=== PATIENT | male | born 1965 | race Caucasian/White ===

== ENCOUNTER 2019-12-27 10:02 | Emergency (ER) | payer OTHER, SELFPAY ==
--- NOTE | 2019-12-27 10:10 | ED.EAR ---
HPI - Ear Problem General Chief complaint: Ear Stated complaint: ear pn Time Seen by Provider: 12/27/19 10:11 Source: patient and RN notes reviewed History of Present Illness HPI Narrative: Patient is a 54-year-old male that presents the urgent care with complaints of left ear pain. Patient states that he had a cold a couple weeks ago and then the left ear started hurting approximately 1 week ago. Patient has not used anything for the pain or anything [id number]. Denies any drainage from the ear. Denies any hearing loss. Denies putting anything in the ear. No other acute complaints. No acute distress noted. Patient read the plan of care. Related Data Home Medications Medication Instructions Recorded Confirmed aspirin 81 mg tablet,delayed 81 mg PO DAILY 09/17/19 release esomeprazole magnesium 20 mg 20 mg PO DAILY 09/17/19 capsule,delayed release rosuvastatin 20 mg tablet 20 mg PO DAILY 09/17/19 Allergies Allergy/AdvReac Type Severity Reaction Status Date / Time No Known Allergies Allergy Verified 10/01/19 15:15 Review of Systems Review of Systems: Narrative: CONSTITUTIONAL: Denies fever, chills, or sweats. EYES: Denies visual changes, redness, or discharge. ENT: Reports of left ear pain CARDIOVASCULAR: Denies chest pain, palpitations, or edema. RESPIRATORY: Denies cough or dyspnea. GASTROINTESTINAL: Denies abdominal pain, nausea, vomiting, or diarrhea. GENITOURINARY: Denies dysuria or hematuria. SKIN: Denies rash or itching. MUSCULOSKELETAL: Denies back pain, joint pain, or myalgia. NEUROLOGIC: Denies headache, numbness, or weakness. All other systems reviewed are negative, except as documented in HPI. [facility] Family History Family History (Updated 06/04/18 @ 16:07 by DOCTOR UNKNOWN) Mother Hypertension Family history of malignant neoplasm of ovary, Onset Age: 74 Sibling Family history of diabetes mellitus in first degree relative Diabetes mellitus Father Family history of heart disease in male family member before age 55 Family history of cardiovascular disease Grandparent Diabetes mellitus Social History Social History Smoking status: Never smoker Alcohol intake: never Comments At the time of my signature, I reviewed and agree with the nursing past medical, surgical, social, and family history. There is no relevant family history pertinent to the patient complaint. Exam Narrative: Exam Narrative: GENERAL: This is a well-nourished, well-developed patient, in no apparent distress. HEAD: normocephalic, atraumatic. EYES: PERRL. Sclera clear/white. Vision is grossly intact. EARS: External ears normal, auditory canals clear and without drainage, moderate fluid noted behind left TM with mild fluid behind right TM without otitis, TMs normal without perforation. Hearing grossly intact. NOSE: External nose normal with no obvious nasal discharge, nares without redness, no rhinorrhea. THROAT: Mucous membranes moist, posterior pharynx clear. NECK: Neck supple CARDIOVASCULAR: Regular rate and rhythm SKIN: warm, intact with no suspicious lesions or rash, good texture and turgor. NEURO: awake, alert, and oriented to person, place and time. There were no obvious focal neurologic abnormalities. EXTREMITIES: No clubbing, cyanosis, or edema. Course Vital Signs Vital signs: Vital Signs Temperature 98.1 F 12/27/19 10:14 Pulse Rate 71 12/27/19 10:14 Respiratory Rate 20 12/27/19 10:14 Blood Pressure 126/74 12/27/19 10:14 Pulse Oximetry 98 12/27/19 10:14 Temperature 98.1 F 12/27/19 10:14 Pulse Rate 71 12/27/19 10:14 Respiratory Rate 20 12/27/19 10:14 Blood Pressure 126/74 12/27/19 10:14 Pulse Oximetry 98 12/27/19 10:14 Reviewed Medical Decision Making MDM Narrative Medical decision making narrative: Advised the patient to use Claritin without a pseudoephedrine in conjunction with Flonase nasal spray prior to bedtime. Use ibuprofen as n
[2019-12-27 10:14] VITALS: BP 126/74; PULSE 71; RESP 20; TEMP 36.7; O2SAT 98
== END 2019-12-27 10:23 | disposition home or self-care (01) ==
PROVIDERS: Emergency Provider Nurse Practitioner Family; PCP Internal Medicine
DX: H92.02 Otalgia, left ear (principal); I10 Essential (primary) hypertension; E78.00 Pure hypercholesterolemia, unspecified
CPT/HCPCS: 99213; G0463

== ENCOUNTER 2020-04-02 15:45 | Outpatient (CLI) | payer OTHER, SELFPAY ==
[2020-04-02 16:40] LABS: Hemoglobin A1C 6.2 % (<5.7)
[2020-04-02 17:29] LABS: Creatinine Urine 258.5 mg/dL
[2020-04-02 17:35] LABS: MALB Creatinine Ratio 2.7 mg/g (0-30); Microalbumin Urine Random 6.9 mg/L (0-16.7)
== END 2020-04-02 15:46 | disposition home or self-care (01) ==
PROVIDERS: PCP Internal Medicine; Visit Provider Internal Medicine
DX: R73.01 Impaired fasting glucose (principal)
CPT/HCPCS: 36415; 82043; 83036

== ENCOUNTER 2020-10-09 08:30 | Outpatient (CLI) | payer OTHER, SELFPAY ==
[2020-10-09 09:43] LABS: Basophils Percent Auto 0.5 % (0.2-1.2); Eosinophils Absolute Auto 0.1 K/mm3 (0-0.3); Eosinophils Percent Auto 1.4 % (0-4.4); Hematocrit 45.5 % (42.0-52.0); Hemoglobin 15.6 g/dL (14.0-18.0); Immature Granulocyte Absolute 0.01 K/mm3 (0.00-0.031); Immature Granulocyte Percent A 0.1 % (0-0.5); Lymphocytes Absolute Auto 2.18 K/mm3 (0.9-3.2); Lymphocytes Percent Auto 29.7 % (18.3-44.2); Mean Corpuscular HGB Conc 34.3 g/dl (32-36); Mean Corpuscular Hemoglobin 29.9 pg (26-34); Mean Corpuscular Volume 87.2 fl (80-100); Mean Platelet Volume 10.1 fl (7.4-10.4); Monocytes Absolute Auto 0.5 K/mm3 (0.1-0.6); Monocytes Percent Auto 6.8 % (2.6-8.5); Neutrophils Absolute Auto 4.5 K/mm3 (1.3-6.7); Neutrophils Percent Auto 61.5 % (45.5-73.1); Platelet Count Result 281 k/mm3 (150-375); Red Blood Count 5.22 M/mm3 (4.6-6.20); Red Cell Distribution Width 11.9 % (11.5-14.5); White Blood Count 7.4 K/mm3 (4.5-10.0)
[2020-10-09 09:54] LABS: Hemoglobin A1C 6.4 % (<5.7)
[2020-10-09 09:55] LABS: Alanine Aminotransferase 40 U/L (4-50); Albumin Level 4.5 g/dL (3.5-5.1); Alkaline Phosphatase 78 U/L (38-126); Anion Gap 4 mmol/L (8-16); Aspartate Amino Transferase 37 U/L (17-59); Bilirubin,Total 0.5 mg/dL (0.2-1.3); Blood Urea Nitrogen 14 mg/dL (9-20); Calcium 9.2 mg/dL (8.4-10.2); Carbon Dioxide 34 mmol/L (22-30); Chloride 100 mmol/L (98-107); Cholesterol 156 mg/dL (0-200); Estimated Glomerular Filt Rate > 60; Glucose 152 mg/dL (75-110); HDL Direct 39 mg/dL; Potassium 4.6 mmol/L (3.4-5.0); Sodium 138 mmol/L (137-145); Triglycerides 76 mg/dL (<150)
[2020-10-09 10:06] LABS: LDL Cholesterol Direct 107 mg/dL
[2020-10-09 10:07] LABS: Creatinine Urine 173.3 mg/dL
[2020-10-09 10:25] LABS: Vitamin D 25 Hydroxy 37.8 ng/mL
[2020-10-09 10:26] LABS: Prostate Specific Antigen 0.7 ng/mL (< OR = 4.0)
[2020-10-09 10:30] LABS: MALB Creatinine Ratio < 3.5 mg/g (0-30); Microalbumin Urine Random < 6.0 mg/L (0-16.7)
== END 2020-10-09 08:31 | disposition home or self-care (01) ==
PROVIDERS: PCP Internal Medicine; Visit Provider Internal Medicine
DX: Z12.5 Encounter for screening for malignant neoplasm of prostate (principal); R73.01 Impaired fasting glucose; E78.2 Mixed hyperlipidemia; I10 Essential (primary) hypertension; Z51.81 Encounter for therapeutic drug level monitoring; Z79.899 Other long term (current) drug therapy
CPT/HCPCS: 36415; 80053; 80061; 82043; 82306; 83036; 84153; 84443; 85025; G0103

== ENCOUNTER 2021-01-07 12:26 | Outpatient (CLI) | payer OTHER, SELFPAY ==
[2021-01-07 13:07] LABS: Hemoglobin A1C 5.7 % (<5.7)
[2021-01-07 13:09] LABS: Anion Gap 5 mmol/L (8-16); Blood Urea Nitrogen 12 mg/dL (9-20); Carbon Dioxide 31 mmol/L (22-30); Chloride 103 mmol/L (98-107); Estimated Glomerular Filt Rate > 60; Glucose 151 mg/dL (75-110); Potassium 4.8 mmol/L (3.4-5.0); Sodium 139 mmol/L (137-145)
[2021-01-07 13:48] LABS: MALB Creatinine Ratio < 9.4 mg/g (0-30); Microalbumin Urine Random < 6.0 mg/L (0-16.7)
== END 2021-01-07 12:27 | disposition home or self-care (01) ==
PROVIDERS: PCP Internal Medicine; Visit Provider Internal Medicine
DX: R73.01 Impaired fasting glucose (principal)
CPT/HCPCS: 36415; 80048; 82043; 83036

== ENCOUNTER 2021-10-28 09:29 | Outpatient (CLI) | payer OTHER, SELFPAY ==
[2021-10-28 09:57] LABS: Basophils Percent Auto 0.3 % (0.2-1.2); Eosinophils Absolute Auto 0.1 K/mm3 (0-0.3); Eosinophils Percent Auto 1.2 % (0-4.4); Hematocrit 44.6 % (42.0-52.0); Hemoglobin 15.9 g/dL (14.0-18.0); Immature Granulocyte Absolute 0.02 K/mm3 (0.00-0.031); Immature Granulocyte Percent A 0.3 % (0-0.5); Lymphocytes Absolute Auto 1.57 K/mm3 (0.9-3.2); Lymphocytes Percent Auto 23.1 % (18.3-44.2); Mean Corpuscular HGB Conc 35.7 g/dl (32-36); Mean Corpuscular Hemoglobin 30.3 pg (26-34); Mean Corpuscular Volume 85.1 fl (80-100); Mean Platelet Volume 9.9 fl (7.4-10.4); Monocytes Absolute Auto 0.5 K/mm3 (0.1-0.6); Monocytes Percent Auto 7.2 % (2.6-8.5); Neutrophils Absolute Auto 4.6 K/mm3 (1.3-6.7); Neutrophils Percent Auto 67.9 % (45.5-73.1); Platelet Count Result 225 k/mm3 (150-375); Red Blood Count 5.24 M/mm3 (4.6-6.20); Red Cell Distribution Width 11.7 % (11.5-14.5); White Blood Count 6.8 K/mm3 (4.5-10.0)
[2021-10-28 10:04] LABS: Hemoglobin A1C 6.4 % (<5.7)
[2021-10-28 10:09] LABS: Alanine Aminotransferase 72 U/L (4-50); Albumin Level 4.8 g/dL (3.5-5.1); Alkaline Phosphatase 95 U/L (38-126); Anion Gap 8 mmol/L (8-16); Aspartate Amino Transferase 48 U/L (17-59); Bilirubin,Total 0.8 mg/dL (0.2-1.3); Blood Urea Nitrogen 14 mg/dL (9-20); Calcium 9.3 mg/dL (8.4-10.2); Carbon Dioxide 28 mmol/L (22-30); Chloride 100 mmol/L (98-107); Cholesterol 227 mg/dL (0-200); Estimated Glomerular Filt Rate > 60; Glucose 150 mg/dL (65-110); HDL Direct 29 mg/dL; Potassium 4.5 mmol/L (3.4-5.0); Sodium 136 mmol/L (137-145); Triglycerides 243 mg/dL (<150)
[2021-10-28 10:20] LABS: LDL Cholesterol Direct 145 mg/dL
[2021-10-28 10:39] LABS: Microalbumin Urine Random 34.9 mg/L (0-16.7)
[2021-10-28 10:39] LABS: Prostate Specific Antigen 0.6 ng/mL (< OR = 4.0)
[2021-10-29 11:40] LABS: Creatinine Urine 350.9 mg/dL; MALB Creatinine Ratio 9.9 mg/g (0-30)
== END 2021-10-28 09:30 | disposition home or self-care (01) ==
LOC: ANHLAB 09:31
PROVIDERS: PCP Internal Medicine; Visit Provider Internal Medicine
DX: R73.01 Impaired fasting glucose (principal); I10 Essential (primary) hypertension; K76.0 Fatty (change of) liver, not elsewhere classified; E78.2 Mixed hyperlipidemia; Z12.5 Encounter for screening for malignant neoplasm of prostate
CPT/HCPCS: 36415; 80053; 80061; 82043; 83036; 84153; 84443; 85025; G0103

== ENCOUNTER 2022-03-06 07:58 | Outpatient (CLI) | payer OTHER, SELFPAY ==
[2022-03-06 08:34] LABS: Alanine Aminotransferase 32 U/L (6-50); Albumin Level 4.5 g/dL (3.5-5.1); Alkaline Phosphatase 69 U/L (38-126); Anion Gap 8 mmol/L (8-16); Aspartate Amino Transferase 31 U/L (17-59); Bilirubin,Total 0.6 mg/dL (0.2-1.3); Blood Urea Nitrogen 18 mg/dL (9-20); Calcium 8.9 mg/dL (8.4-10.2); Carbon Dioxide 27 mmol/L (22-30); Chloride 102 mmol/L (98-107); Cholesterol 153 mg/dL (0-200); Estimated Glomerular Filt Rate > 60; Glucose 132 mg/dL (65-110); HDL Direct 35 mg/dL; Potassium 4.3 mmol/L (3.4-5.0); Sodium 137 mmol/L (137-145); Triglycerides 190 mg/dL (<150)
[2022-03-06 08:39] LABS: Hemoglobin A1C 5.8 % (<5.7)
[2022-03-06 08:45] LABS: LDL Cholesterol Direct 84 mg/dL
[2022-03-06 09:21] LABS: Creatinine Urine 33.7 mg/dL
[2022-03-06 09:26] LABS: MALB Creatinine Ratio < 17.8 mg/g (0-30); Microalbumin Urine Random < 6.0 mg/L (0-16.7)
== END 2022-03-06 07:59 | disposition home or self-care (01) ==
LOC: ANHLAB 08:00
PROVIDERS: PCP Internal Medicine; Visit Provider Internal Medicine
DX: R73.01 Impaired fasting glucose (principal); E78.2 Mixed hyperlipidemia; I10 Essential (primary) hypertension
CPT/HCPCS: 36415; 80053; 80061; 82043; 83036

== ENCOUNTER 2022-06-08 11:23 | Day surgery (SDC) | payer OTHER, SELFPAY ==
[2022-05-22 14:51] VITALS: BMI 28.0
[2022-06-08 11:49] VITALS: BMI 26.7
[2022-06-08] MEDS: LACTATED RINGERS 1,000 ML 150 ML IV CONT (11:55)
--- NOTE | 2022-06-08 12:18 | P.PNAN_ITS ---
Anes - Initial Pre Proc Eval Procedure: Operation Date: 06/08/22 13:00 Proposed Procedures p Esophagogastroduodenoscopy - Vignesh Corona MD Date/Time: 06/08/22 12:18 Surgeon: Vignesh Corona MD Pre Op Diagnosis: Gerd Patient Data Age: 57 Gender: M Height: 1.75 m Weight: 82.1 kg Allergies Allergy/AdvReac Type Severity Reaction Status Date / Time No Known Allergies Allergy Verified 06/08/22 11:48 Home Medications Medication Instructions Recorded Confirmed Type aspirin 81 mg tablet,delayed 81 mg PO DAILY 09/17/19 06/08/22 History release (Adult Low Dose Aspirin) lisinopril 20 mg tablet See Rx Instructions .Route 03/06/22 06/08/22 Rx .COMPLEX #90 tabs pantoprazole 40 mg tablet,delayed 40 mg PO QAM #90 tabs 03/30/22 06/08/22 Rx release rosuvastatin 20 mg tablet 10 mg PO DAILY 05/22/22 06/08/22 History Patient hx anesthesia problems: none Family hx anesthesia problems: none Results Review: All pre-operative results and documents have been reviewed as part of the pre- operative evaluation. [facility] Past Medical History Medical History (Updated 06/08/22 @ 12:18 by Venu Dee MD) HTN (hypertension) Surgical History Surgical History (Updated 06/08/22 @ 12:19 by Venu Dee MD) H/O wrist surgery History of ankle surgery History of lumbar surgery Family History Family History Mother Hypertension Family history of malignant neoplasm of ovary, Onset Age: 74 Sibling Family history of diabetes mellitus in first degree relative Diabetes mellitus Father Family history of heart disease in male family member before age 55 Family history of cardiovascular disease Grandparent Diabetes mellitus Social History Social History Smoking status: Never smoker Second hand tobacco smoke exposure: No Alcohol intake: current Substance use: current Substance use type: does not use and marijuana Living arrangements: alone Spiritual care concerns: No Anes - Eval Final PreProcedure Day of Procedure 06/08/22 12:18 Patient weight: overweight Heart: regular rate and rhythm Lungs: clear to auscultation Airway: Mallampati scale class II Neurological: alert and oriented Last oral intake: >/= 8 hours ASA classification: II Emergent: no Anesthesia type and monitoring: general GIVS and standard monitoring Results Review: All pre-operative results and documents have been reviewed as part of the pre- operative evaluation. Informed Consent: The patient's anesthetic plan and its attendant risks and benefits were disc ussed with the patient/family/POA. Questions were solicited and answers provided to the satisfaction of the patient/family/POA.
--- NOTE | 2022-06-08 12:40 | PM.IMHP ---
H&P: HPI History of Present Illness Date/Time: 06/08/22 12:40 Chief Complaint: GERD. Narrative: This is a 57-year-old white male patient presents for EGD. Patient has a history of heartburn. This is improved on restarting PPI therapy. Patient denies any current dysphagia. 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 Because of chest pain he is referred for EGD. Review of Systems Review of Systems: Review of systems noncontributory. PMFSH Past Medical History Medical History (Updated 06/08/22 @ 12:18 by Venu Dee MD) HTN (hypertension) Surgical History Surgical History (Updated 06/08/22 @ 12:19 by Venu Dee MD) H/O wrist surgery History of ankle surgery History of lumbar surgery Family History Family History Mother Hypertension Family history of malignant neoplasm of ovary, Onset Age: 74 Sibling Family history of diabetes mellitus in first degree relative Diabetes mellitus Father Family history of heart disease in male family member before age 55 Family history of cardiovascular disease Grandparent Diabetes mellitus Social History Social History Smoking status: Never smoker Second hand tobacco smoke exposure: No Alcohol intake: current Substance use: current Substance use type: does not use and marijuana Living arrangements: alone Spiritual care concerns: No Meds Home Medications and Allergies Home Medications Medication Instructions Recorded Confirmed Type aspirin 81 mg tablet,delayed 81 mg PO DAILY 09/17/19 06/08/22 History release (Adult Low Dose Aspirin) lisinopril 20 mg tablet See Rx Instructions .Route 03/06/22 06/08/22 Rx .COMPLEX #90 tabs pantoprazole 40 mg tablet,delayed 40 mg PO QAM #90 tabs 03/30/22 06/08/22 Rx release rosuvastatin 20 mg tablet 10 mg PO DAILY 05/22/22 06/08/22 History Allergies Allergy/AdvReac Type Severity Reaction Status Date / Time No Known Allergies Allergy Verified 06/08/22 11:48 Exam Narrative: Physical exam reveals patient to be alert. Vital signs stable. HEENT exam is unremarkable. Patient is anicteric. Lungs are clear to auscultation and percussion. Heart is without murmur or extra sounds. Abdominal exam bowel sounds are present soft nontender with no organomegaly. Assessment and Plan Assessment and plan (1) GERD (gastroesophageal reflux disease): Qualifiers: Esophagitis presence: esophagitis presence not specified Qualified Code(s): K21.9 - Gastro-esophageal reflux disease without esophagitis Code(s): K21.9 - Gastro-esophageal reflux disease without esophagitis Status: Acute Assessment and Plan: Patient with chronic GE reflux symptoms. Symptoms appeared to resolve on stopping PPI therapy. Plan is for EGD at this time. Symptoms currently improving while on pantoprazole. Further recommendations will be given after endoscopy.
[2022-06-08 12:55] VITALS: BP 110/78; PULSE 74; RESP 16; O2SAT 100
--- NOTE | 2022-06-08 13:03 | WPDANESPN ---
Anes - Prog Note Post-Op Date/Time: 06/08/22 13:03 Cardiovascular status: normal Respiratory status: normal Airway patency: baseline Mental status: baseline Post-Op hydration status: normal Pain Score (VAS): 0/10 I/O: Intake & Output 06/07/22 06/08/22 06/08/22 23:59 07:59 15:59 Intake Total 200 Balance 200 Patient Feedback: Patient satisfied with anesthetic care.
[2022-06-08 13:05] VITALS: BP 102/72; PULSE 70; RESP 20; O2SAT 100
[2022-06-08 13:15] VITALS: BP 112/74; PULSE 65; RESP 20; O2SAT 100
== END 2022-06-08 13:37 | disposition home or self-care (01) ==
PROVIDERS: Visit Provider Internal Medicine Gastroenterology
PROC: 0DJ08ZZ Inspection of Upper Intestinal Tract, Via Natural or Artificial Opening Endoscopic (ICD-10-PCS; CPT 43235; principal; 2022-06-08 13:00)
DX: K21.9 Gastro-esophageal reflux disease without esophagitis (principal)
CPT/HCPCS: 43450

== ENCOUNTER 2022-10-07 11:31 | Emergency (ER) | payer OTHER, SELFPAY ==
[2022-10-07 11:52] VITALS: BP 122/68; PULSE 80; RESP 18; TEMP 36; O2SAT 100
--- NOTE | 2022-10-07 12:10 | ED.URI ---
HPI - URI/Sore Throat General Chief Complaint: Upper Respiratory Infection Stated Complaint: Headache,Cough,Congestion,Fatigue Time Seen by Provider: 10/07/22 12:10 Source: patient and RN notes reviewed Mode of arrival: ambulatory Limitations: no limitations History of Present Illness HPI Narrative: 57-year-old male presented for complaint of feeling out of gas and fatigued since yesterday. He states he has had sinus congestion and a cough for about 3 weeks. He denies shortness of breath, wheezing, nausea, vomiting, diarrhea, fevers or chills. He takes occasional NyQuil for symptoms. He denies sick contacts. He is not vaccinated. MD elicited complaint: cough Related Data Home Medications Medication Instructions Recorded Confirmed aspirin 81 mg tablet,delayed 81 mg PO DAILY 09/17/19 10/07/22 release (Adult Low Dose Aspirin) rosuvastatin 20 mg tablet 10 mg PO DAILY 05/22/22 10/07/22 Allergies Allergy/AdvReac Type Severity Reaction Status Date / Time No Known Allergies Allergy Verified 10/07/22 12:12 Review of Systems Review of Systems: ROS per HPI [facility] Past Medical History Medical History Essential hypertension HTN (hypertension) IFG (impaired fasting glucose) Mixed hyperlipidemia ABELINO (obstructive sleep apnea) Surgical History Surgical History H/O wrist surgery History of ankle surgery History of lumbar surgery Family History Family History Mother Hypertension Family history of malignant neoplasm of ovary, Onset Age: 74 Sibling Family history of diabetes mellitus in first degree relative Diabetes mellitus Father Family history of heart disease in male family member before age 55 Family history of cardiovascular disease Grandparent Diabetes mellitus Other GERD (gastroesophageal reflux disease) Overweight (BMI 25.0-29.9) Social History Social History Smoking status: Never smoker Second hand tobacco smoke exposure: No Alcohol intake: current Substance use: current Substance use type: does not use and marijuana Lack of Transportation: No Lack of Food: Never True Current Housing: Decline to Answer Concerned About Future Housing: Decline to Answer Difficulty Paying Gas/Electric Bills: Decline to Answer Difficulty Paying for Meds: Decline to Answer Currently Unemployed: Decline to Answer Education: Don't Know Difficulty w/ Childcare or Family Care: Decline to Answer Spiritual care concerns: No Exam Narrative: GENERAL: well-appearing, nontoxic EYES: PERRLA, conjunctivae clear ENT: Mucous membranes moist. TMs pearly ontiveros with dull light reflex bilaterally; no tragal tenderness. Oropharynx normal without lesions or exudate NECK: Supple. No lymphadenopathy CHEST: Clear to auscultation, breath sounds equal. No wheezing, rhonchi, rales, or stridor. No respiratory distress, speaks in full sentences. HEART: Regular rate and rhythm. No murmur heard. SKIN: Warm, dry, no rash. NEURO: Alert and oriented x3. PSYCH: Normal mood and affect Course Course Emergency Course: Patient is aware of diagnosis, understands and agrees to treatment plan. Anticipatory guidance given. Patient agrees to follow-up as directed and is aware of reasons to seek care at the emergency department. Portions of this record may have been created with voice recognition software Level of Care: Express Care Visit Vital Signs Vital signs: Vital Signs Temperature 96.8 F L 10/07/22 11:52 Pulse Rate 80 10/07/22 11:52 Respiratory Rate 18 10/07/22 11:52 Blood Pressure 122/68 10/07/22 11:52 Pulse Oximetry 100 10/07/22 11:52 Oxygen Delivery Room Air 10/07/22 11:52 Temperature 96.8 F L 10/07/22 11:52 Pulse Rate 80
== END 2022-10-07 12:46 | disposition home or self-care (01) ==
PROVIDERS: Emergency Provider Nurse Practitioner Family
DX: J06.9 Acute upper respiratory infection, unspecified (principal); Z20.822 Contact with and (suspected) exposure to COVID-19; I10 Essential (primary) hypertension; E78.2 Mixed hyperlipidemia; R73.01 Impaired fasting glucose; Z79.82 Long term (current) use of aspirin
CPT/HCPCS: 87426; 87804; 99213; C9803; G0463

== ENCOUNTER 2023-01-24 14:32 | Outpatient (CLI) | payer OTHER, SELFPAY ==
[2023-01-24 15:39] LABS: Hematocrit 40.2 % (42.0-52.0); Hemoglobin 14.5 g/dL (14.0-18.0); Mean Corpuscular HGB Conc 36.1 g/dl (32-36); Mean Corpuscular Hemoglobin 31.1 pg (26-34); Mean Corpuscular Volume 86.3 fl (80-100); Mean Platelet Volume 10.2 fl (7.4-10.4); Platelet Count Result 246 k/mm3 (150-375); Red Blood Count 4.66 M/mm3 (4.6-6.20); Red Cell Distribution Width 11.9 % (11.5-14.5); White Blood Count 6.8 K/mm3 (4.5-10.0)
[2023-01-24 15:58] LABS: Alanine Aminotransferase 57 U/L (6-50); Albumin Level 4.5 g/dL (3.5-5.1); Alkaline Phosphatase 70 U/L (38-126); Anion Gap 10 mmol/L (8-16); Aspartate Amino Transferase 42 U/L (17-59); Bilirubin,Total 0.6 mg/dL (0.2-1.3); Blood Urea Nitrogen 23 mg/dL (9-20); Calcium 8.6 mg/dL (8.4-10.2); Carbon Dioxide 25 mmol/L (22-30); Chloride 101 mmol/L (98-107); Cholesterol 177 mg/dL (0-200); Estimated Glomerular Filt Rate > 60; Glucose 164 mg/dL (65-110); HDL Direct 34 mg/dL; Potassium 4.1 mmol/L (3.4-5.0); Sodium 136 mmol/L (137-145); Triglycerides 158 mg/dL (<150)
[2023-01-24 16:17] LABS: LDL Cholesterol Direct 116 mg/dL
[2023-01-24 16:40] LABS: Prostate Specific Antigen 0.6 ng/mL (< OR = 4.0)
[2023-01-24 17:30] LABS: Hemoglobin A1C 6.4 % (<5.7)
[2023-01-28 23:38] LABS: Vitamin D 1,25 (OH)2 Total 37 pg/mL (18-72); Vitamin D2 1,25 (OH)2 <8 pg/mL; Vitamin D3 1,25 (OH)2 37 pg/mL
== END 2023-01-24 14:33 | disposition home or self-care (01) ==
LOC: ANHLAB 14:33
PROVIDERS: Visit Provider Internal Medicine
DX: Z00.00 Encounter for general adult medical examination without abnormal findings (principal); I10 Essential (primary) hypertension; E78.2 Mixed hyperlipidemia
CPT/HCPCS: 36415; 80053; 80061; 82652; 83036; 84153; 85027; G0103

== ENCOUNTER 2023-09-24 07:39 | Outpatient (CLI) | payer OTHER, SELFPAY ==
[2023-09-24 08:22] LABS: Anion Gap 6 mmol/L (8-16); Blood Urea Nitrogen 23 mg/dL (9-20); Calcium 8.9 mg/dL (8.4-10.2); Carbon Dioxide 30 mmol/L (22-30); Chloride 101 mmol/L (98-107); Estimated Glomerular Filt Rate 57; Glucose 188 mg/dL (65-110); Potassium 4.6 mmol/L (3.4-5.0); Sodium 137 mmol/L (137-145)
[2023-09-24 08:51] LABS: Hemoglobin A1C 7.1 % (<5.7)
== END 2023-09-24 07:40 | disposition home or self-care (01) ==
LOC: ANHLAB 07:40
PROVIDERS: PCP Nurse Practitioner Family; Visit Provider Nurse Practitioner Family
DX: R73.01 Impaired fasting glucose (principal); R73.09 Other abnormal glucose
CPT/HCPCS: 36415; 80048; 83036

== ENCOUNTER 2023-12-24 07:45 | Outpatient (CLI) | payer OTHER, SELFPAY | END 2023-12-24 07:46 | disposition home or self-care (01) | LOC: ANHLAB 07:47 | PROVIDERS: PCP Nurse Practitioner Family; Visit Provider Nurse Practitioner Family | DX: E11.9 Type 2 diabetes mellitus without complications (principal); E66.9 Obesity, unspecified; G47.33 Obstructive sleep apnea (adult) (pediatric) | CPT/HCPCS: 36415; 83036 ==

== ENCOUNTER 2024-03-13 15:38 | Outpatient (CLI) | payer OTHER, SELFPAY ==
[2024-03-13 15:27] LABS: Basophils Percent Auto 0.4 % (0.2-1.2); Eosinophils Percent Auto 0.2 % (0-4.4); Hematocrit 45.7 % (42.0-52.0); Immature Granulocyte Absolute 0.04 K/mm3 (0.00-0.031); Immature Granulocyte Percent A 0.4 % (0-0.5); Lymphocytes Percent Auto 9.7 % (18.3-44.2); Mean Corpuscular Hemoglobin 30.2 pg (26-34); Mean Corpuscular Volume 86.2 fl (80-100); Mean Platelet Volume 9.3 fl (7.4-10.4); Monocytes Percent Auto 8.4 % (2.6-8.5); Neutrophils Absolute Auto 9.2 K/mm3 (1.3-6.7); Neutrophils Percent Auto 80.9 % (45.5-73.1); Platelet Count Result 220 k/mm3 (150-375); White Blood Count 11.4 K/mm3 (4.5-10.0)
[2024-03-13 15:42] LABS: Alanine Aminotransferase 61 U/L (6-50); Albumin Level 4.7 g/dL (3.5-5.1); Alkaline Phosphatase 74 U/L (38-126); Anion Gap 9 mmol/L (4-12); Aspartate Amino Transferase 41 U/L (17-59); Bilirubin,Total 1.1 mg/dL (0.2-1.3); Blood Urea Nitrogen 13 mg/dL (9-20); Calcium 8.9 mg/dL (8.4-10.2); Carbon Dioxide 25 mmol/L (22-30); Chloride 101 mmol/L (98-107); Estimated Glomerular Filt Rate > 60; Glucose 170 mg/dL (65-110); Potassium 4.4 mmol/L (3.4-5.0); Sodium 135 mmol/L (137-145)
[2024-03-13 17:01] LABS: Toxigenic C. Diff NEGATIVE (NEGATIVE)
[2024-03-21 19:58] LABS: Norovirus RNA PCR, Stool NOT DETECTED
== END 2024-03-13 15:39 | disposition home or self-care (01) ==
LOC: ANHLAB 15:38
PROVIDERS: PCP Family Medicine; Visit Provider Nurse Practitioner Family
DX: R19.7 Diarrhea, unspecified (principal); R50.9 Fever, unspecified
CPT/HCPCS: 36415; 80053; 85025; 87177; 87209; 87425; 87493; 87798; 89055

== ENCOUNTER 2024-03-21 13:46 | Outpatient (CLI) | payer OTHER, SELFPAY ==
--- NOTE | ~2024-03-21 | CT_ITS ---
CT of the Abdomen and Pelvis: Indication: Abdominal pain Technique: 2.5 mm axial scans were obtained through the abdomen and pelvis following intravenous adm inistration of 100 cc of Omnipaque 350. Dose reduction technique was used on this scan by utilizing a utomated exposure control and iterative reconstruction technique. The dose-length product (DLP) was 7 61.26 mGy-cm. Findings: Scans through the lung bases are unremarkable. There is diffuse hepatic steatosis. The spleen, pancreas, gallbladder, adrenals and kidneys are withi n normal limits. No evidence of aortic aneurysm. No lymphadenopathy. No bowel obstruction or bowel wall thickening. There is no evidence to suggest acute appendicitis. Th ere is minimal haziness in the central mesentery with small shotty lymph nodes. Images through the pelvis were performed. Urinary bladder unremarkable. Prostate gland mildly enlarge d. No ascites. Impression: Findings consistent with mild mesenteric panniculitis. Diffuse hepatic steatosis. Reviewed, dictated and finalized at [facility]. Impression: Findings consistent with mild mesenteric panniculitis. Diffuse hepatic steatosis.
[2024-03-21 14:04] LABS: Estimated Glomerular Filt Rate 52
== END 2024-03-21 13:47 ==
PROVIDERS: PCP Nurse Practitioner Family; Visit Provider Nurse Practitioner Family
DX: K76.0 Fatty (change of) liver, not elsewhere classified (principal)
CPT/HCPCS: 74177; Q9967

== ENCOUNTER 2024-05-01 01:20 | Day surgery (SDC) | payer OTHER, SELFPAY ==
[2024-04-17 14:32] VITALS: BMI 27.8
--- NOTE | 2024-05-01 09:48 | SUR.PREOP ---
Patient asked about getting an EGD today. Said he thought he was down for both. Looked into his history further. Patient does have history of GERD, Esophagitis, esophogeal web requiring esophogeal dilitation on 06/[address]ona[address] Sunshine office to check into getting approval for EGD so we could do it today. Spoke with Dr. Sunshine and he is in agreement with EGD. He placed order in the chart for EGD. Will check with office to see they can get approval for EGD. Patient is ok to proceed with colon if we are unable to get approval for EGD but would prefer to have it done all in one visit.
[2024-05-01] MEDS: LACTATED RINGERS 1,000 ML 150 ML IV CONT (09:55)
[2024-05-01 09:57] VITALS: BP 108/88; PULSE 75; RESP 20; TEMP 35.7; O2SAT 100; BMI 27.4
[2024-05-01 10:05] LABS: Glucose Point of Care 135 mg/dl (65-105)
--- NOTE | 2024-05-01 10:37 | WPDANESEPPF ---
Anes - Initial Pre Proc Eval Procedure: Operation Date: 05/01/24 11:00 Proposed Procedures p Esophagogastroduodenoscopy & Colonoscopy - Neno Chanec MD Date/Time: 05/01/24 10:37 Surgeon: Neno Chance MD Pre Op Diagnosis: Diarrhea Patient Data Age: 58 Gender: M Height: 1.73 m Weight: 82 kg Last Vital Signs Temp 96.2 F L 05/01/24 09:57 Pulse 75 05/01/24 09:57 Resp 20 05/01/24 09:57 BP 108/88 05/01/24 09:57 Pulse Ox 100 05/01/24 09:57 O2 Del Method Room Air 05/01/24 09:57 Allergies Allergy/AdvReac Type Severity Reaction Status Date / Time No Known Allergies Allergy Verified 05/01/24 09:43 Home Medications Medication Instructions Recorded Confirmed Type aspirin 81 mg tablet,delayed 81 mg PO DAILY 09/17/19 04/17/24 History release (Adult Low Dose Aspirin) blood-glucose meter (Blood Glucose #1 ea 09/26/23 04/01/24 Rx Monitoring kit) lancets 31 gauge #100 ea 09/26/23 04/01/24 Rx blood sugar diagnostic (Blood #50 ea 11/22/23 04/01/24 Rx Glucose Test strips) metformin 500 mg tablet 1,000 mg PO DAILY #180 tabs 12/31/23 04/17/24 Rx semaglutide 0.25 mg or 0.5 mg (2 0.25 mg or 0.5 mg (2 mg/3 mL) Pen 12/31/23 04/01/24 Sample mg/3 mL) subcutaneous pen injector Injector#1 Samples (Ozempic) lisinopril 20 mg tablet See Rx Instructions .Route 03/18/24 04/17/24 Rx .COMPLEX #90 tabs pantoprazole 40 mg tablet,delayed See Rx Instructions .Route 03/18/24 04/17/24 Rx release .COMPLEX #90 tabs rosuvastatin 10 mg tablet See Rx Instructions .Route 03/18/24 04/17/24 Rx .COMPLEX #90 tabs Laboratory Tests 05/01/24 09:52 POC Capillary Glucose 135 H mg/dl (65-105) Patient hx anesthesia problems: none Family hx anesthesia problems: none Results Review: All pre-operative results and documents have been reviewed as part of the pre-operative evaluation. [facility] Past Medical History Medical History Essential hypertension HTN (hypertension) IFG (impaired fasting glucose) Mixed hyperlipidemia ABELINO (obstructive sleep apnea) wears cpap Surgical History Surgical History H/O wrist surgery History of ankle surgery History of lumbar surgery Family History Family History Mother Hypertension Family history of malignant neoplasm of ovary, Onset Age: 74 Sibling Family history of diabetes mellitus in first degree relative Diabetes mellitus Father Family history of heart disease in male family member before age 55 Family history of cardiovascular disease Grandparent Diabetes mellitus Other GERD (gastroesophageal reflux disease) Overweight (BMI 25.0-29.9) Social History Social History Smoking status: Never smoker Second hand tobacco smoke exposure: No Alcohol intake: current Substance use: current Substance use type: does not use and marijuana Other substance usage details: gummies Lack of Transportation: No Lack of Food: Never True Current Housing: Decline to Answer Concerned About Future Housing: Decline to Answer Difficulty Paying Gas/Electric Bills: Decline to Answer Difficulty Paying for Meds: Decline to Answer Currently Unemployed: Decline to Answer Education: Don't Know Difficulty w/ Childcare or Family Care: Decline to Answer Living arrangements: alone Spiritual care concerns: No Anes - Eval Final PreProcedure Day of Procedure 05/01/24 10:37 Patient weight: obese Heart: regular rate and rhythm Lungs: clear to auscultation Airway: Mallampati scale class II Neurological: alert and oriented Last oral intake: >/= 8 hours ASA classification: III Emergent: no Anesthetic plan: proceed Anesthesia type and monitoring: general GIVS and dian
--- NOTE | 2024-05-01 10:46 | PM.HPGS ---
History of Present Illness History of Present Illness Consent: Risks, benefits, and alternatives have been discussed and questions answered. Patient agrees to proceed with procedure. Chief complaint: Diarrhea Narrative: Quentin Meehan is a 58 year old male with diarrhea that lasted 10 years but now gone, stool sample negative, CT scan showed possible mesenteric panniculitis and even given steroid for short time. Last colonoscopy 2014, also gerd on PPI, h/o previous esophageal dilatation. Review of Systems Review of Systems: All systems reviewed & are unremarkable except as noted in HPI and below PMFSH Past Medical History Medical History Essential hypertension HTN (hypertension) IFG (impaired fasting glucose) Mixed hyperlipidemia ABELINO (obstructive sleep apnea) wears cpap Surgical History Surgical History H/O wrist surgery History of ankle surgery History of lumbar surgery Family History Family History Mother Hypertension Family history of malignant neoplasm of ovary, Onset Age: 74 Sibling Family history of diabetes mellitus in first degree relative Diabetes mellitus Father Family history of heart disease in male family member before age 55 Family history of cardiovascular disease Grandparent Diabetes mellitus Other GERD (gastroesophageal reflux disease) Overweight (BMI 25.0-29.9) Social History Social History Smoking status: Never smoker Second hand tobacco smoke exposure: No Alcohol intake: current Substance use: current Substance use type: does not use and marijuana Other substance usage details: [email or web address] Lack of Transportation: No Lack of Food: Never True Current Housing: Decline to Answer Concerned About Future Housing: Decline to Answer Difficulty Paying Gas/Electric Bills: Decline to Answer Difficulty Paying for Meds: Decline to Answer Currently Unemployed: Decline to Answer Education: Don't Know Difficulty w/ Childcare or Family Care: Decline to Answer Living arrangements: alone Spiritual care concerns: No Meds Home Medications and Allergies Home Medications Medication Instructions Recorded Confirmed Type aspirin 81 mg tablet,delayed 81 mg PO DAILY 09/17/19 04/17/24 History release (Adult Low Dose Aspirin) blood-glucose meter (Blood Glucose #1 ea 09/26/23 04/01/24 Rx Monitoring kit) lancets 31 gauge #100 ea 09/26/23 04/01/24 Rx blood sugar diagnostic (Blood #50 ea 11/22/23 04/01/24 Rx Glucose Test strips) metformin 500 mg tablet 1,000 mg PO DAILY #180 tabs 12/31/23 04/17/24 Rx semaglutide 0.25 mg or 0.5 mg (2 0.25 mg or 0.5 mg (2 mg/3 mL) Pen 12/31/23 04/01/24 Sample mg/3 mL) subcutaneous pen injector Injector#1 Samples (Ozempic) lisinopril 20 mg tablet See Rx Instructions .Route 03/18/24 04/17/24 Rx .COMPLEX #90 tabs pantoprazole 40 mg tablet,delayed See Rx Instructions .Route 03/18/24 04/17/24 Rx release .COMPLEX #90 tabs rosuvastatin 10 mg tablet See Rx Instructions .Route 03/18/24 04/17/24 Rx .COMPLEX #90 tabs Allergies Allergy/AdvReac Type Severity Reaction Status Date / Time No Known Allergies Allergy Verified 05/01/24 09:43 Vital Signs Vital Signs - 24 hr 05/01/24 09:57 Temperature 96.2 F L Pulse Rate 75 Respiratory Rate 20 Blood Pressure 108/88 Pulse Oximetry 100 Oxygen Delivery Room Air Exam Const: General: comfortable and no acute distress HENMT: Face/Nose/Sinus: Normal nares present Eyes: General: appearance normal, both eyes and all related structures Neck: Neck: no JVD Resp: Auscultation: clear to auscultation bilaterally Cardio: Rate: regular rate Rhythm: regular rhythm GI: Inspection: non-distended GI Palp: Yes Soft to palpation Sk
--- NOTE | 2024-05-01 11:04 | SUR.OPER ---
EGD: [id number] COLON: Start 1100
[2024-05-01 11:16] VITALS: BP 108/74; PULSE 93; RESP 20; O2SAT 98
[2024-05-01 11:26] VITALS: BP 118/78; PULSE 70; RESP 16; O2SAT 100
[2024-05-01 11:36] VITALS: BP 120/82; PULSE 74; RESP 20; O2SAT 100
== END 2024-05-01 11:42 | disposition home or self-care (01) ==
PROVIDERS: PCP Nurse Practitioner Family; Referring Provider Nurse Practitioner Family; Visit Provider Internal Medicine Gastroenterology
PROC: 0DJ08ZZ Inspection of Upper Intestinal Tract, Via Natural or Artificial Opening Endoscopic (ICD-10-PCS; CPT 43235; principal; 2024-05-01 11:00)
DX: K64.8 Other hemorrhoids (principal); K29.50 Unspecified chronic gastritis without bleeding; Q39.4 Esophageal web; K44.9 Diaphragmatic hernia without obstruction or gangrene; K21.9 Gastro-esophageal reflux disease without esophagitis; I10 Essential (primary) hypertension; E78.2 Mixed hyperlipidemia; G47.33 Obstructive sleep apnea (adult) (pediatric); E66.9 Obesity, unspecified; Z68.27 Body mass index [BMI] 27.0-27.9, adult; Z79.82 Long term (current) use of aspirin; Z79.84 Long term (current) use of oral hypoglycemic drugs; Z79.85 Long-term (current) use of injectable non-insulin antidiabetic drugs; Z99.89 Dependence on other enabling machines and devices; Z98.890 Other specified postprocedural states; Z98.1 Arthrodesis status; Z80.41 Family history of malignant neoplasm of ovary; Z82.49 Family history of ischemic heart disease and other diseases of the circulatory system
CPT/HCPCS: 45378; 43249; 82948; 88305; C1726; J2704; J7120